=== PATIENT | male | born 1955 | race African-American/Black ===

== ENCOUNTER 2022-04-17 12:47 | Emergency (ER) | payer OTHER ==
[~2022-04-17] VITALS: Ht 170.2 cm; Wt 90.0 kg
[2022-04-17 16:00] VITALS: BP 135/88
[2022-04-17 16:07] LABS: BASOPHILS % 1.1 % (0.0-2.0); EOSINOPHILS % 3.6 % (0.0-5.0); HEMATOCRIT. 37.1 % (42.0-52.0); HEMOGLOBIN. 11.7 g/dL (14.0-18.0); MEAN CORPUSCULAR HEMOGLOBIN 24.7 pg (28.0-32.0); MEAN CORPUSCULAR VOLUME 78.6 fL (80.0-94.0); MEAN PLATELET VOLUME 8.4 fl (7.4-10.4); MONOCYTES % 5.4 % (2.0-8.0); NEUTROPHILS % 79.9 % (40.0-76.0); PLATELET 345 x1000/uL (130-400); RED BLOOD CELL COUNT 4.72 mill/uL (4.7-6.1); RED CELL DISTRIBUTION WIDTH 17.9 % (11.6-14.6)
[2022-04-17 16:22] LABS: CHLORIDE 107 mEq/L (98-107)
[2022-04-17] MEDS ORDERED: ASPIRIN 325MG EC TABLET PO ONE (16:30)
[2022-04-18] MEDS ORDERED: ATOR20TA65 MT (19:23)
== END 2022-04-17 16:05 | disposition left against medical advice (07) ==
LOC: ER 12:47 → EDBEDREQ 17:22 → EDBEDREQTM 17:22 → CANBEDREQ 18:09
DX: I63.9 Cerebral infarction, unspecified (principal); R53.1 Weakness; I10 Essential (primary) hypertension
CPT/HCPCS: 36415; 71045; 80053; 83880; 84484; 85025; 93005; 99285

== ENCOUNTER 2022-04-18 14:45 | Emergency (ER) | payer OTHER ==
[~2022-04-18] VITALS: Ht 165.1 cm; Wt 85.0 kg
[2022-04-18] MEDS ORDERED: ATORVASTATIN CALCIUM 40MG TABLET PO SCH (15:45)
[2022-04-18] MEDS ORDERED: ASPIRIN 81MG TABLET PO ONE (15:45)
[2022-04-18 16:17] LABS: BASOPHILS % 1.1 % (0.0-2.0); EOSINOPHILS % 4.2 % (0.0-5.0); HEMATOCRIT. 39.9 % (42.0-52.0); HEMOGLOBIN. 12.7 g/dL (14.0-18.0); LYMPHOCYTES % 13.3 % (20.0-50.0); MEAN CORPUSCULAR HEMOGLOBIN 24.6 pg (28.0-32.0); MEAN PLATELET VOLUME 8.3 fl (7.4-10.4); MONOCYTES % 5.8 % (2.0-8.0); NEUTROPHILS % 75.6 % (40.0-76.0); PLATELET 380 x1000/uL (130-400); RED BLOOD CELL COUNT 5.18 mill/uL (4.7-6.1); RED CELL DISTRIBUTION WIDTH 18.5 % (11.6-14.6)
[2022-04-18 16:22] LABS: CHLORIDE 105 mEq/L (98-107)
[2022-04-18 18:10] LABS: CLARITY URINE CLEAR (CLEAR); COLOR URINE YELLOW (YELLOW); KETONES URINE NEGATIVE (NEGATIVE); LEUKOCYTE ESTERASE URINE NEGATIVE (NEGATIVE); NITRITE URINE NEGATIVE (NEGATIVE); OCCULT BLOOD URINE NEGATIVE (NEGATIVE); PH URINE 5.5 (4.5-8.0); PROTEIN URINE NEGATIVE (NEGATIVE); SPECIFIC GRAVITY URINE 1.012 (1.005-1.030); UROBILINOGEN URINE 0.2 E.U./dL (0.2-1.0)
[2022-04-18] MEDS ORDERED: ATOR20TA65 MT (19:23)
[2022-04-18 20:15] VITALS: BP 138/65
== END 2022-04-18 20:37 | disposition home or self-care (01) ==
LOC: ER 14:45
DX: R53.1 Weakness (principal); I63.9 Cerebral infarction, unspecified; I10 Essential (primary) hypertension
CPT/HCPCS: 36415; 80053; 81003; 85025; 99283

== ENCOUNTER 2023-05-30 09:41 | Emergency (ER) | payer MEDICARE, OTHER ==
[~2023-05-30] VITALS: Ht 177.8 cm; Wt 87.0 kg
[~2023-05-30 09:41] MED LIST: ATOR20TA65 MT
[2023-05-30 09:46] VITALS: O2SAT 97
[2023-05-30 10:38] LABS: BASOPHILS % 1.2 % (0.0-2.0); EOSINOPHILS % 5.2 % (0.0-5.0); HEMATOCRIT. 32.1 % (42.0-52.0); HEMOGLOBIN. 10.4 g/dL (14.0-18.0); MEAN CORPUSCULAR HEMOGLOBIN 25.1 pg (28.0-32.0); MEAN CORPUSCULAR VOLUME 77.6 fL (80.0-94.0); MEAN PLATELET VOLUME 7.8 fl (7.4-10.4); MONOCYTES % 6.5 % (2.0-8.0); NEUTROPHILS % 76.1 % (40.0-76.0); PLATELET 311 x1000/uL (130-400); RED BLOOD CELL COUNT 4.14 mill/uL (4.7-6.1); RED CELL DISTRIBUTION WIDTH 17.5 % (11.6-14.6)
[2023-05-30 10:50] LABS: INR 1.1; PROTHROMBIN TIME 11.3 sec (9.6-11.0)
[2023-05-30 10:57] LABS: CHLORIDE 107 mEq/L (98-107)
[2023-05-30 11:00] VITALS: TEMP 97.9
[2023-05-30] MEDS ORDERED: ASPIRIN 81MG TABLET PO ONE (11:45)
[2023-05-30] MEDS ORDERED: SODIUM CHLORIDE 0.9% 1,000 ML IV ONE (11:45)
[2023-05-30 13:40] LABS: CLARITY URINE CLEAR (CLEAR); COLOR URINE YELLOW (YELLOW); KETONES URINE NEGATIVE (NEGATIVE); LEUKOCYTE ESTERASE URINE NEGATIVE (NEGATIVE); NITRITE URINE NEGATIVE (NEGATIVE); OCCULT BLOOD URINE NEGATIVE (NEGATIVE); PH URINE 5.5 (4.5-8.0); PROTEIN URINE NEGATIVE (NEGATIVE); SPECIFIC GRAVITY URINE 1.017 (1.005-1.030)
[2023-05-30] MEDS ORDERED: CLOPIDOGREL 75MG TABLET PO ONE (14:00)
[2023-05-30] MEDS ORDERED: CLOPIDOGREL 75MG TABLET PO NR (18:45)
[2023-05-30 19:08] VITALS: BP 152/56; PULSE 70; RESP 16
== END 2023-05-30 19:08 | disposition short-term general hospital (02) ==
LOC: ER 09:41
DX: R53.1 Weakness (principal); I10 Essential (primary) hypertension; Z86.73 Personal history of transient ischemic attack (TIA), and cerebral infarction without residual deficits
CPT/HCPCS: 99285; 96360; 70450; 71045; 80053; 81003; 85025; 85610; 84484; 36415; 93005; J7030

== ENCOUNTER 2024-02-12 12:29 | Emergency (ER) | payer MEDICARE, MEDICAID ==
[~2024-02-12] VITALS: Ht 170.2 cm; Wt 73.0 kg
[2024-02-12 12:37] VITALS: O2SAT 99
[2024-02-12 13:04] LABS: DIFFERENTIAL COMMENT 0; EOSINOPHILS % 3.8 % (0.0-5.0); HEMATOCRIT. 35.3 % (42.0-52.0); HEMOGLOBIN. 11.6 g/dL (14.0-18.0); LYMPHOCYTES % 9.8 % (20.0-50.0); MEAN CORPUSCULAR HEMOGLOBIN 25.7 pg (28.0-32.0); MEAN CORPUSCULAR HGB CONC 32.7 g/dL (31.0-37.0); MEAN CORPUSCULAR VOLUME 78.6 fL (80.0-94.0); MEAN PLATELET VOLUME 8.1 fl (7.4-10.4); MONOCYTES % 9.3 % (2.0-8.0); NEUTROPHILS % 76.1 % (40.0-76.0); PLATELET 343 x1000/uL (130-400); RED BLOOD CELL COUNT 4.49 mill/uL (4.7-6.1); RED CELL DISTRIBUTION WIDTH 14.8 % (11.6-14.6); WHITE BLOOD COUNT 6.3 x1000/uL (4.5-11.0)
[2024-02-12 13:33] LABS: ALANINE AMINOTRANSFERASE 9 IU/L (10-49); ASPARTATE AMINOTRANSFERASE 15 IU/L (<34); BILIRUBIN TOTAL 0.3 mg/dL (0.1-1.0); CALCIUM 8.7 mg/dL (8.7-10.4); CARBON DIOXIDE 27 mEq/L (21-32); CHLORIDE 107 mEq/L (98-107); CREATININE 1.7 mg/dL (0.6-1.3); GLUCOSE 94 mg/dL (70-105); POTASSIUM 4.1 mEq/L (3.5-5.1); PROTEIN TOTAL 7.5 g/dL (6.0-8.3); SODIUM 140 mEq/L (136-145); TROPONIN I HIGH SENSITIVITY 9 ng/L (3.0-53); UREA NITROGEN BLOOD 24 mg/dL (9-23)
[2024-02-12 13:53] VITALS: TEMP 97.9
[2024-02-12 15:40] LABS: TROPONIN I HIGH SENSITIVITY 10 ng/L (3.0-53)
[2024-02-12] MEDS ORDERED: HYDROCODONE/ACETAMINOPHEN 5/325MG TABLET PO PRN (17:15)
[2024-02-12] MEDS ORDERED: CLONIDINE 0.1MG TABLET PO PRN (17:15)
[2024-02-12] MEDS ORDERED: IPRATROPIUM/ALBUTEROL 0.5-3(2.5)MG/3ML NEB HHN PRN (17:15)
[2024-02-12] MEDS ORDERED: ONDANSETRON HCL 4MG/2ML INJ IV PRN (17:15)
[2024-02-12] MEDS ORDERED: ACETAMINOPHEN 325MG TABLET PO PRN (17:15)
[2024-02-12] MEDS ORDERED: ENOXAPARIN 40MG/0.4ML SYR SUBCUT SCH (17:15)
[2024-02-12] MEDS: ASPIRIN 81MG TABLET PO SCH (17:44)
[2024-02-12 17:51] LABS: TROPONIN I HIGH SENSITIVITY 10 ng/L (3.0-53)
[2024-02-12 18:40] VITALS: BP 157/101; PULSE 63; RESP 16
[2024-02-12] MEDS ORDERED: ATORVASTATIN CALCIUM 20MG TABLET PO SCH (21:00)
== END 2024-02-12 18:41 | disposition short-term general hospital (02) ==
LOC: ER 12:29 → EDBEDREQ 14:54 → EDBEDREQTM 14:54 → ER 18:41 → CANBEDREQ 02-13 20:48
DX: R07.89 Other chest pain (principal); R53.1 Weakness; N17.9 Acute kidney failure, unspecified; I10 Essential (primary) hypertension; Z86.73 Personal history of transient ischemic attack (TIA), and cerebral infarction without residual deficits
CPT/HCPCS: 99285; 71045; 80053; 83880; 85025; 84484; 93005; 36415; J1650

== ENCOUNTER 2024-03-03 11:17 | Emergency (ER) | payer MEDICARE, MEDICAID ==
[~2024-03-03] VITALS: Ht 182.9 cm; Wt 55.0 kg
[2024-03-03 11:18] VITALS: O2SAT 98
[2024-03-03 12:38] LABS: HEMATOCRIT 35.7 % (42.0-52.0); HEMOGLOBIN 11.8 g/dL (14.0-18.0); MEAN CORPUSCULAR HEMOGLOBIN 25.8 pg (28.0-32.0); MEAN CORPUSCULAR HGB CONC 32.9 g/dL (31.0-37.0); MEAN CORPUSCULAR VOLUME 78.4 fL (80.0-94.0); PLATELET 344 x1000/uL (130-400); RED BLOOD CELL COUNT 4.56 mill/uL (4.7-6.1); RED CELL DISTRIBUTION WIDTH 15.1 % (11.6-14.6); WHITE BLOOD COUNT 6.9 x1000/uL (4.5-11.0)
[2024-03-03 12:47] LABS: CARBON DIOXIDE 26 mEq/L (21-32); CHLORIDE 107 mEq/L (98-107); POTASSIUM 4.1 mEq/L (3.5-5.1); SODIUM 139 mEq/L (136-145)
[2024-03-03 12:48] LABS: CALCIUM 8.9 mg/dL (8.7-10.4)
[2024-03-03 12:52] LABS: CREATININE 1.7 mg/dL (0.6-1.3); ETHANOL BLOOD < 10 mg/dL (<10)
[2024-03-03 12:53] LABS: ACETAMINOPHEN < 2 ug/mL (10-30); GLUCOSE 97 mg/dL (70-105); UREA NITROGEN BLOOD 20 mg/dL (9-23)
[2024-03-03 12:54] LABS: ALANINE AMINOTRANSFERASE < 7 IU/L (10-49)
[2024-03-03 12:55] LABS: ALBUMIN 4.1 g/dL (3.2-4.8); ASPARTATE AMINOTRANSFERASE 12 IU/L (<34); BILIRUBIN TOTAL 0.7 mg/dL (0.1-1.0)
[2024-03-04 12:18] LABS: *AMPHETAMINES SCREEN URINE NEGATIVE (NEGATIVE); *BENZODIAZEPINES SCREEN URINE NEGATIVE (NEGATIVE)
[2024-03-04 12:19] LABS: *BARBITURATES SCREEN URINE NEGATIVE (NEGATIVE); *COCAINE SCREEN URINE NEGATIVE (NEGATIVE); CANNABINOID URINE SCREEN NEGATIVE (NEGATIVE); ECSTASY MDMA SCREEN URINE NEGATIVE (NEGATIVE); METHADONE URINE SCREEN NEGATIVE (NEGATIVE); PHENCYCLIDINE URINE SCREEN NEGATIVE (NEGATIVE)
[2024-03-04 13:40] LABS: OPIATES URINE SCREEN NEGATIVE (NEGATIVE)
[2024-03-04 17:40] VITALS: BP 156/86; PULSE 80; RESP 16; TEMP 98.2
== END 2024-03-05 00:49 | disposition home or self-care (01) ==
LOC: ER 11:18
DX: R19.7 Diarrhea, unspecified (principal); I10 Essential (primary) hypertension; Z86.73 Personal history of transient ischemic attack (TIA), and cerebral infarction without residual deficits
CPT/HCPCS: 36415; 80053; 80307; 80320; 80329; 85027; 99284; G0480

== ENCOUNTER 2024-03-05 15:06 | Emergency (ER) | payer MEDICARE, MEDICAID ==
[~2024-03-05] VITALS: Ht 170.2 cm; Wt 83.8 kg
[2024-03-05 15:08] VITALS: O2SAT 100
[2024-03-05 16:17] LABS: BASOPHILS % 0.4 % (0.0-2.0); DIFFERENTIAL COMMENT 0; EOSINOPHILS % 2.2 % (0.0-5.0); HEMATOCRIT. 37.8 % (42.0-52.0); HEMOGLOBIN. 12.1 g/dL (14.0-18.0); LYMPHOCYTES % 10.4 % (20.0-50.0); MEAN CORPUSCULAR HEMOGLOBIN 24.9 pg (28.0-32.0); MEAN CORPUSCULAR VOLUME 77.6 fL (80.0-94.0); MEAN PLATELET VOLUME 8.4 fl (7.4-10.4); MONOCYTES % 6.7 % (2.0-8.0); NEUTROPHILS % 80.3 % (40.0-76.0); PLATELET 315 x1000/uL (130-400); RED BLOOD CELL COUNT 4.87 mill/uL (4.7-6.1); RED CELL DISTRIBUTION WIDTH 15.2 % (11.6-14.6); WHITE BLOOD COUNT 7.4 x1000/uL (4.5-11.0)
[2024-03-05 16:25] LABS: CHLORIDE 104 mEq/L (98-107); POTASSIUM 3.8 mEq/L (3.5-5.1); SODIUM 139 mEq/L (136-145)
[2024-03-05 16:26] LABS: CALCIUM 8.5 mg/dL (8.7-10.4); CARBON DIOXIDE 25 mEq/L (21-32)
[2024-03-05 16:31] LABS: CREATININE 1.9 mg/dL (0.6-1.3); GLUCOSE 92 mg/dL (70-105); UREA NITROGEN BLOOD 26 mg/dL (9-23)
[2024-03-05 16:32] LABS: TROPONIN I HIGH SENSITIVITY 15 ng/L (3.0-53)
[2024-03-05 16:33] LABS: ACETAMINOPHEN < 2 ug/mL (10-30); ALANINE AMINOTRANSFERASE < 7 IU/L (10-49); ALBUMIN 3.8 g/dL (3.2-4.8); ASPARTATE AMINOTRANSFERASE 15 IU/L (<34); ETHANOL BLOOD < 10 mg/dL (<10)
[2024-03-05 16:34] LABS: BILIRUBIN TOTAL 0.6 mg/dL (0.1-1.0); PROTEIN TOTAL 7.1 g/dL (6.0-8.3)
[2024-03-05 16:37] LABS: INR 1.1; PROTHROMBIN TIME 11.8 sec (9.6-11.0)
[2024-03-05 16:39] LABS: AMMONIA 20 uMol/L (<32)
[2024-03-05] MEDS: ASPIRIN 325MG EC TABLET PO ONE (17:09)
[2024-03-05] MEDS: CLOPIDOGREL 75MG TABLET PO ONE (17:09)
[2024-03-05 18:00] VITALS: TEMP 98.6
[2024-03-05] MEDS: ONDANSETRON HCL 4MG/2ML INJ IV ONE (21:54)
[2024-03-05] MEDS: MORPHINE SULFATE 4 MG/ML INJ (FOR IV/IM USE) IV ONE (21:58)
[2024-03-05 22:22] VITALS: BP 148/94; PULSE 81; RESP 15
[2024-03-05] MEDS ORDERED: IOHEXOL-350 100 ML BOTTLE ONE (22:22)
== END 2024-03-05 22:30 | disposition short-term general hospital (02) ==
LOC: ER 15:06 → CANBEDREQ 03-06 18:04
DX: R47.81 Slurred speech (principal); I10 Essential (primary) hypertension; Z86.73 Personal history of transient ischemic attack (TIA), and cerebral infarction without residual deficits
CPT/HCPCS: 80053; 80307; 80329; 80320; 82140; 82962; 83880; 85025; 85610; 84484; 36415; 71045; 70496; 70498; 70450; 93005; 96374; 96375; 99291; Q9967; J2405; J2270; G0480